=== PATIENT | female | born 1945 | race Caucasian/White ===

== ENCOUNTER 2016-12-05 15:29 | Emergency (ER) | payer MEDICARE, OTHER | END 2016-12-06 00:20 | disposition home or self-care (01) | LOC: ER1 15:29 | DX: S52.614A Nondisplaced fracture of right ulna styloid process, initial encounter for closed fracture (principal); S52.571A Other intraarticular fracture of lower end of right radius, initial encounter for closed fracture; S70.01XA Contusion of right hip, initial encounter; I10 Essential (primary) hypertension; W01.0XXA Fall on same level from slipping, tripping and stumbling without subsequent striking against object, initial encounter; Y93.01 Activity, walking, marching and hiking; Y92.488 Other paved roadways as the place of occurrence of the external cause | CPT/HCPCS: 36415; 71010; 72192; 73030; 73080; 73110; 73502; 96374; 96375; 96376; 99284; J2270; J2405 ==